=== PATIENT | female | born 1995 | race Caucasian/White ===

== ENCOUNTER → 2017-08-05 15:29 | Outpatient (CLI) | payer BC, SELFPAY ==
[2017-08-05 18:06] LABS: ALB/GLOB Ratio 1.1 RATIO (0.9-2.4); AST(SGOT) 16 U/L (15-37); Alanine Aminotransfer ALT/SGPT 47 U/L (13-56); Alkaline Phosphatase 119 U/L (45-117); Anion Gap 6 (5-15); BUN 8 mg/dL (7-18); BUN/Creat Ratio 11.5 RATIO (10-20); Chloride 108 mmol/L (98-107); Cholesterol 159 mg/dL (200); Creatinine, Serum 0.69 mg/dL (0.55-1.02); EST Glomerular Filtration Rate 114 mL/min (>60); Est Glom Filt Rate - Afr Amer 138 mL/min (>60); Globulin 3.5 g/dL (2.2-4.2); Glucose 169 mg/dL (74-106); High Density Lipoprotein 28 mg/dL; Potassium 4.1 mmol/L (3.5-5.1); Protein, Total 7.5 g/dL (6.4-8.2); Sodium Level 139 mmol/L (136-145); T4 Free Direct 0.93 ng/dL (0.76-1.46); Thyroid Stim Hormone (TSH) 0.89 uIU/mL (0.358-3.74); Triglycerides 338 mg/dL; Very Low Density Lipoprotein 68 mg/dL (5-40)
[2017-08-05 18:08] LABS: Hemoglobin A1c 6.1 % (4.2-6.3)
== END ==
PROVIDERS: Family Provider Family Medicine; PCP Family Medicine; Visit Provider Family Medicine
DX: K75.81 Nonalcoholic steatohepatitis (NASH) (principal); L83 Acanthosis nigricans; E66.9 Obesity, unspecified
CPT/HCPCS: 36415; 80053; 80061; 83036; 84439; 84443

== ENCOUNTER → 2019-06-03 14:22 | Outpatient (CLI) | payer BC, SELFPAY ==
[2019-06-03 14:04] VITALS: BMI 40.2
[2019-06-03 15:17] LABS: Estradiol 61.1 pg/mL; Prolactin 13.2 ng/mL; Thyroid Stim Hormone (TSH) 1.32 uIU/mL (0.358-3.74)
== END ==
PROVIDERS: PCP Family Medicine; Referring Provider Nurse Practitioner Women's Health; Visit Provider Nurse Practitioner Women's Health
DX: N97.0 Female infertility associated with anovulation (principal)
CPT/HCPCS: 36415; 82670; 84146; 84443

== ENCOUNTER → 2019-06-18 10:56 | Outpatient (CLI) | payer BC, SELFPAY ==
[2019-06-03 14:04] VITALS: BMI 40.2
[2019-06-18 12:08] LABS: Progesterone Level 0.27 ng/mL (See Comment)
== END ==
PROVIDERS: Nurse Practitioner Women's Health; PCP Family Medicine; Referring Provider Obstetrics & Gynecology; Visit Provider Obstetrics & Gynecology
DX: E28.2 Polycystic ovarian syndrome (principal)
CPT/HCPCS: 36415; 84144

== ENCOUNTER → 2019-07-29 09:40 | Outpatient (CLI) | payer BC, SELFPAY ==
[2019-06-03 14:04] VITALS: BMI 40.2
[2019-07-29 10:33] LABS: hCG Titer Quant., Serum < 1 mIU/mL (1-3)
== END ==
PROVIDERS: PCP Family Medicine; Referring Provider Nurse Practitioner Women's Health; Visit Provider Nurse Practitioner Women's Health
DX: N91.2 Amenorrhea, unspecified (principal)
CPT/HCPCS: 36415; 84702

== ENCOUNTER 2021-06-30 11:08 | Outpatient (CLI) | payer BC, SELFPAY ==
[2021-06-30 12:24] LABS: hCG Titer Quant., Serum 48 mIU/mL (1-3)
== END 2021-06-30 23:59 | disposition home or self-care (01) ==
LOC: PAVLAB 11:10
PROVIDERS: PCP Family Medicine; Referring Provider Obstetrics & Gynecology; Visit Provider Obstetrics & Gynecology
DX: N91.2 Amenorrhea, unspecified (principal)
CPT/HCPCS: 36415; 84702

== ENCOUNTER 2021-07-03 10:11 | Outpatient (CLI) | payer BC, SELFPAY ==
[2021-07-03 10:57] LABS: hCG Titer Quant., Serum 125 mIU/mL (1-3)
== END 2021-07-03 23:59 | disposition home or self-care (01) ==
LOC: PAVLAB 10:12
PROVIDERS: PCP Family Medicine; Referring Provider Obstetrics & Gynecology; Visit Provider Obstetrics & Gynecology
DX: O20.0 Threatened abortion (principal); Z3A.00 Weeks of gestation of pregnancy not specified
CPT/HCPCS: 36415; 84702

== ENCOUNTER 2021-07-19 13:57 | Outpatient (CLI) | payer BC, SELFPAY ==
[2021-07-19 14:45] LABS: Absolute Lymphocyte Count 3.51 X10^3/uL (0.83-4.51); Absolute Neutrophil Count 9.5 X10^3/uL (2.0-7.7); Basophil# 0.11 X10^3/uL; Basophil% 0.8 % (0-1); Eosinophil# 0.22 X10^3/uL; Eosinophils% 1.6 % (0-5); Hematocrit 43.4 % (37-47); Hemoglobin 15.4 g/dL (12.0-15.0); Lymphocyte # 3.51 X10^3/ul (0.83-4.51); Lymphocyte % 25.1 % (19-41); Mean Corp Hgb Conc 35.5 g/dL (32-36); Mean Corpuscular Volume 87.3 fL (81-99); Mean Platelet Vol. 9.8 fl (6.2-12.0); Monocyte# 0.59 X10^3/uL; Monocyte% 4.2 % (0-10); NRBC Flagged by Analyzer 0 % (0-5); Neutrophil # 9.48 X10^3/uL (2.7-7.7); Neutrophil % 67.7 % (47-70); Platelet Count 399 K/mm3 (150-450); RBC Distribution Width CV 12.5 % (11.6-14.6); RBC Distribution Width SD 39.6 fl (35.1-43.9); Red Blood Count 4.97 M/mm3 (4.2-5.4)
[2021-07-19 14:46] LABS: Color, Urine Yellow (Yellow); Glucose, Dipstick Normal (Normal); Ketone-Dipstick Negative (Negative); Leukocyte Esterase-Dipstick Negative /ul (Negative); Nitrite-Dipstick Negative (Negative); Occult Blood-Urine Negative /ul (Negative); Protein-Dipstick Negative (Negative); Urine Bilirubin Dipstick Negative (Negative); Urine Clarity Clear (Clear); Urine Urobilinogen Normal (Normal)
[2021-07-19 14:50] LABS: Vista UDS pH Range 6
[2021-07-19 14:58] LABS: Amphetamine Urine VISTA NEGATIVE (<1000 ng/mL); Barbiturate Urine VISTA NEGATIVE (< 200 ng/mL); Benzodiazepine Urine VISTA NEGATIVE (< 200 ng/mL); Cocaine Urine VISTA NEGATIVE (< 300 ng/mL); Ecstacy Urine VISTA NEGATIVE (< 500 ng/mL); Methadone Urine VISTA NEGATIVE (< 300 ng/mL); PCP Urine VISTA NEGATIVE (< 25 ng/mL); THC Urine VISTA NEGATIVE (< 50 ng/mL)
[2021-07-19 15:07] LABS: Thyroid Stim Hormone (TSH) 2.47 uIU/mL (0.358-3.74)
[2021-07-19 16:30] LABS: HIV - WCH Non-Reactive (Nonreactive); Hepatitis B Surface Antigen Non-Reactive (Nonreactive); Hepatitis C Antibody Non-Reactive (Nonreactive); Rubella IgG Reactive (Nonreactive); Syphilis Antibodies Non-reactive
[2021-07-25 12:00] LABS: Chlamydia By Nucleic Acid AMP Negative (Negative)
[2021-07-25 16:35] LABS: Gonococcus By Nucleic Acid AMP Negative (Negative)
== END 2021-07-19 23:59 | disposition home or self-care (01) ==
LOC: WOBLAB 13:58
PROVIDERS: PCP Family Medicine; Visit Provider Obstetrics & Gynecology
DX: Z34.81 Encounter for supervision of other normal pregnancy, first trimester (principal); Z12.4 Encounter for screening for malignant neoplasm of cervix; Z11.3 Encounter for screening for infections with a predominantly sexual mode of transmission
CPT/HCPCS: 36415; 80307; 81002; 84443; 85025; 86703; 86762; 86780; 86803; 87086; 87088; 87340; 87491; 87591; 88175; G0145

== ENCOUNTER 2021-08-03 21:34 | Emergency (ER) | payer BC, SELFPAY ==
[2021-08-03 21:34] VITALS: BP 168/108; PULSE 110; RESP 18; TEMP 36.4; O2SAT 97; BMI 40.6
--- NOTE | 2021-08-03 22:05 | US_ITS ---
EXAM: US FIRST TRIMESTER , TRANSABDOMINAL AND TRANSVAGINAL CLINICAL INDICATION: bleeding TECHNIQUE: Real-time transabdominal and transvaginal obstetrical ultrasound of the maternal pelvis and a first trimester with image documentation. Transvaginal imaging was used for better evaluation of the fetus and adnexa. This report was created using [employer] report generation technology. COMPARISON: None. FINDINGS: GESTATION: Single intrauterine gestational sac very low in the uterus extending into the cervix. Yolk sac identified. [place]-rump length is 1.5 cm corresponding to 7 weeks 6 days. No cardiac activity identified. UTERUS/CERVIX: Unremarkable. No myometrial mass. The uterus measures 8.2 x 4.6 x 4.2 cm. OVARIES: Simple appearing cyst measuring 5.4 x 5.7 x 5.1 cm left adnexa. The right ovary measures 4.8 x 4.3 x 3.1 cm. The left ovary measures 3.1 x 3 x 3.4 cm. FREE FLUID: No free fluid. US/Transvaginal w/Preg US IMPRESSION: 1. demise with in progress. 2. Paraovarian cyst measuring 5.4 x 5.7 x 5.1 cm left adnexa. Electronically Signed: Jurgen Valentine MD at 23:21 EDT ,
--- NOTE | 2021-08-03 22:07 | EDS_ITS ---
HPI HPI - Female History of Present Illness Chief Complaint: Vag Bld, Preg Informant: patient Pain Pain: Positive for Pelvic Pain Onset: Today Context: Gradual Onset Timing: Waxes and wanes Quality: Positive for Cramping Location: Suprapubic Current Severity: Mild Maximum Severity: Mild Bleeding Issue: Positive for Vaginal bleeding Onset: Weeks (2 weeks, worse over the past 24 hours) Timing: Waxes and wanes Associated Symptoms Test: Positive P: 0 Ab: 0 Narrative Narrative: Patient presents secondary to pelvic cramping and vaginal bleeding. She is approximately 8 weeks . She is been having vaginal bleeding for the past 2 weeks that she describes more of spotting. Last evening the bleeding became heavier. She passed 2 blood clots last night and 1 this morning. Today she is been having increasing pelvic cramping. She reports having been seen by INSURANCE POLICY ISSUE CLERK. Ultrasound to confirm intrauterine . Blood type is reviewed in the computer and is O+. PFSH PFSH Medical History Anxiety Collar bone fracture Esophageal reflux Left Lateral Epicordylae Fracture Paratubal cyst PCOS (polycystic ovarian syndrome) Home Medications multivitamin with iron 1 tab PO DAILY 06/03/19 [History Last Taken Unknown] sertraline 100 mg tablet 100 mg PO QDAY #30 tab 07/15/21 [Rx Last Taken Unknown] hydrocodone-acetaminophen 1 tab PO Q6H PRN 3 Days #10 tab 08/03/21 [Rx Last Taken Unknown] metformin mg PO 08/03/21 [History Last Taken Unknown] progesterone micronized mg 08/03/21 [History Last Taken Unknown] Allergy/AdvReac Type Severity Reaction Status Date / Time No Known Allergies Allergy Verified 08/03/21 21:37 Family History Father Myocardial infarction Grandmother Breast cancer Surgical History History of tonsillectomy and adenoidectomy Hx of tympanostomy Social History Smoking Status: Never smoker substance use type: does not use caffeine: Yes what type of physical activity do you participate in: none seatbelt use: always do you feel safe at home: Yes additional social history: Recently - [place] ROS ROS ED Constitutional Constitutional ED: Denies chills or fever(s) Eyes Eyes: Denies change in vision ENT ENT ED: Denies sore throat Cardiovascular Cardiovascular: Denies chest pain Respiratory/Chest Respiratory/Chest: Denies cough or dyspnea Gastrointestinal Gastrointestinal: Reports abdominal pain; Denies diarrhea, nausea or vomiting Genitourinary Genitourinary ED: Denies dysuria or hematuria Musculoskeletal Musculoskeletal: Denies back pain Integumentary Denies rash Neurologic Neurologic: Denies headache(s) or weakness Allergic/Immunologic Allergic/Immunologic ED: Denies urticaria EXAM Physical Exam Const Vital Signs: 08/03/21 21:34 Temperature 97.6 F L Temperature Source Temporal Pulse Rate 110 H Respiratory Rate 18 Blood Pressure 168/108 H Blood Pressure Mean 128 Pulse Ox 97 Oxygen Delivery Method Room Air Positive well nourished and well developed General Appearance ED: well developed HEENT Reports moist mucous membranes Eyes PERRL and EOMs intact bilaterally Chest Wall inspection of chest normal and palpation of chest normal Resp normal respiratory effort and clear to auscultation bilaterally Cardio regular rate and regular rhythm GI soft to palpation and non-tender Extremity normal to inspection Neuro oriented x3 Sensorium / Orientation: alert Psych mental status grossly normal Skin no rashes or lesions noted MDM MDM MDM Narrative Medical decision making narrative: Blood type was reviewed in the computer and is all positive. Quant obtained at this time. Patient given Tylenol and a 500 cc IV fluid bolus. Pelvic ultrasound obtained. Lab Data Attestation: I reviewed the patient's lab results. Labs: Laboratory Results - last 24 hr 08/03/21 22:15 HCG, Quant [id number] H Radiography Diagnostic Testing: Clinical Impression(s) from Imaging Studies Obstetrics Ultrasound 08/03/21 22:05 IMPRESSION: 1. demise with in progress. 2. Paraovarian cyst measuring 5.4 x 5.7 x 5.1 cm left adnexa. Electronically Signed: Jurgen Valentine MD at 23:21 EDT , Treatment and Re-Evaluation Narrative: Quant is [id number], lower than the expected value for her expected 8-week . Ultrasound shows demise with no evidence of a heartbeat at this time. I did discuss findings with patient's INSURANCE POLICY ISSUE CLERK, Dr. Elder. She is to follow-up in the office. I will write her for Felicita to help with cramping. I did explain to her that she will likely start having bleeding consistent with a heavy period. Return instructions are provided. Repeat blood pressure prior to discharge is 142/97. Discharge Plan Triage Chief Complaint: Vag Bld, Preg ED Provider: Malinda Wong Dx/Rx/DC Orders Clinical Impression: demise Instructions: ED MISCARRIAGE Incomplete Prescriptions: New hydrocodone-acetaminophen 5-325 mg tablet 1 tab PO Q6H PRN (Reason: pain) 3 Days Qty: 10 RF: 0 No Action multivitamin with iron [Daily Multiple Vitamins/Iron] Tablet 1 tab PO DAILY RF: 0 progesterone micronized 200 mg capsule RF: 0 metformin 500 mg tablet extended release 24 hr PO RF: 0 sertraline [Zoloft] 100 mg tablet 100 mg PO QDAY Qty: 30 RF: 12 Primary Care Provider: Kevin Novoa Referrals: Sj Elder MD [STAFF PHYSICIAN] - 1 Week Kevin Novoa DO [Primary Care Provider] - Disposition Disposition: Home, Self Care
[2021-08-03] MEDS: Acetaminophen 500 MG Tablet 1000 MG PO (22:24)
[2021-08-03 23:26] LABS: hCG Titer Quant., Serum 4439 mIU/mL (1-3)
[2021-08-03 23:51] VITALS: BP 154/88; PULSE 84; RESP 16; O2SAT 98
== END 2021-08-03 23:52 | disposition home or self-care (01) ==
PROVIDERS: Emergency Provider Emergency Medicine; PCP Family Medicine; Visit Provider Emergency Medicine
DX: O03.4 Incomplete spontaneous abortion without complication (principal); Z79.899 Other long term (current) drug therapy; O99.281 Endocrine, nutritional and metabolic diseases complicating pregnancy, first trimester; E28.2 Polycystic ovarian syndrome; O99.611 Diseases of the digestive system complicating pregnancy, first trimester; K21.9 Gastro-esophageal reflux disease without esophagitis; O99.341 Other mental disorders complicating pregnancy, first trimester; F41.9 Anxiety disorder, unspecified; Z79.84 Long term (current) use of oral hypoglycemic drugs
CPT/HCPCS: 76817; 84702; 96360; 99283; J7040; A4216

== ENCOUNTER → 2021-08-15 | Outpatient (CLI) | payer BC, SELFPAY ==
[2021-08-18 03:07] LABS: Dilute Prothrombin Time (dPT) 27.2 sec (0.0-47.6); Dilute Russell Viper Venom 41.5 sec (0.0-47.0); PTT-LA 36.2 sec (0.0-51.9); Thrombin Time 17.5 sec (0.0-23.0); dPT Confirm Ratio 1.27 Ratio (0.00-1.34)
[2021-08-18 08:42] LABS: Anti-Cardiolipin Ab, IgA, Qn < 9 APL U/mL (0-11); Anti-Cardiolipin Ab, IgG, Qn < 9 GPL U/mL (0-14); Anti-Cardiolipin Ab, IgM, Qn < 9 MPL U/mL (0-12); Beta-2-Glycoprotein I IgA <9 (0-25); Beta-2-Glycoprotein I IgG <9 (0-20); Beta-2-Glycoprotein I IgM <9 (0-32); Interpretation Comment: (.)
== END | disposition home or self-care (01) ==
LOC: WOBLAB 16:54
PROVIDERS: PCP Family Medicine; Visit Provider Student in an Organized Health Care Education/Training Program
DX: N96 Recurrent pregnancy loss (principal)
CPT/HCPCS: 36415; 86146; 86147

== ENCOUNTER → 2021-12-12 | Outpatient (CLI) | payer BC, SELFPAY | END | disposition home or self-care (01) | LOC: SL 12:09 | PROVIDERS: PCP Family Medicine; Referring Provider Family Medicine; Visit Provider Family Medicine | DX: G47.10 Hypersomnia, unspecified (principal) | CPT/HCPCS: 95806 ==

== ENCOUNTER → 2022-01-23 | Outpatient (CLI) | payer BC, SELFPAY ==
[2022-01-23 12:20] LABS: Progesterone Level 11.29 ng/mL (See Comment)
== END | disposition home or self-care (01) ==
LOC: WOBLAB 11:03
PROVIDERS: PCP Family Medicine; Visit Provider Student in an Organized Health Care Education/Training Program
DX: N97.9 Female infertility, unspecified (principal)
CPT/HCPCS: 36415; 84144

== ENCOUNTER → 2022-02-05 | Outpatient (CLI) | payer BC, SELFPAY ==
[2022-02-05 13:07] LABS: hCG Titer Quant., Serum 2 mIU/mL (1-3)
== END | disposition home or self-care (01) ==
LOC: WOBLAB 10:47
PROVIDERS: PCP Family Medicine; Visit Provider Obstetrics & Gynecology
DX: O20.0 Threatened abortion (principal); Z3A.00 Weeks of gestation of pregnancy not specified
CPT/HCPCS: 36415; 84702

== ENCOUNTER → 2022-04-04 | Outpatient (CLI) | payer BC, SELFPAY ==
[2022-04-04 11:07] LABS: Absolute Lymphocyte Count 2.79 X10^3/uL (0.83-4.51); Absolute Neutrophil Count 7.4 X10^3/uL (2.0-7.7); Basophil# 0.09 X10^3/uL; Basophil% 0.8 % (0-1); Eosinophil# 0.18 X10^3/uL; Eosinophils% 1.7 % (0-5); Hematocrit 42.3 % (37-47); Hemoglobin 14.7 g/dL (12.0-15.0); Lymphocyte # 2.79 X10^3/ul (0.83-4.51); Lymphocyte % 25.7 % (19-41); Mean Corp Hgb Conc 34.8 g/dL (32-36); Mean Corpuscular Hgb 30.3 pg (27.0-32.0); Mean Corpuscular Volume 87.2 fL (81-99); Mean Platelet Vol. 9.7 fl (6.2-12.0); Monocyte# 0.37 X10^3/uL; Monocyte% 3.4 % (0-10); NRBC Flagged by Analyzer 0 % (0-5); Neutrophil # 7.37 X10^3/uL (2.7-7.7); Neutrophil % 67.9 % (47-70); Platelet Count 378 K/mm3 (150-450); RBC Distribution Width CV 12.9 % (11.6-14.6); Red Blood Count 4.85 M/mm3 (4.2-5.4); White Blood Count 10.9 K/mm3 (4.4-11.0)
[2022-04-04 11:44] LABS: T4 Free Direct 1.12 ng/dL (0.76-1.46)
[2022-04-04 12:12] LABS: HIV - WCH Non-Reactive (Nonreactive); Hepatitis B Surface Antigen Non-Reactive (Nonreactive); Hepatitis C Antibody Non-Reactive (Nonreactive); Rubella IgG Reactive (Nonreactive); Syphilis Antibodies Non-reactive
[2022-04-04 14:54] LABS: Hemoglobin A1c 6.2 % (3.8-5.6)
[2022-04-05 16:27] LABS: V-Zoster IgG (Immunity) 899 index (Immune >165)
[2022-04-06 06:08] LABS: Chlamydia By Nucleic Acid AMP Negative (Negative)
[2022-04-06 10:44] LABS: Gonococcus By Nucleic Acid AMP Negative (Negative)
== END | disposition home or self-care (01) ==
LOC: WOBLAB 09:35
PROVIDERS: PCP Family Medicine; Visit Provider Obstetrics & Gynecology
DX: Z34.81 Encounter for supervision of other normal pregnancy, first trimester (principal)
CPT/HCPCS: 36415; 83036; 84439; 84443; 85025; 86703; 86762; 86780; 86787; 86803; 87086; 87088; 87340; 87491; 87591

== ENCOUNTER → 2022-04-17 | Outpatient (CLI) | payer BC, SELFPAY ==
--- NOTE | 2022-04-17 10:11 | EKG12_ITS ---
Test Reason : PREG,DM2 Blood Pressure : / mmHG Vent. Rate : 103 BPM Atrial Rate : 103 BPM P-R Int : 132 ms QRS Dur : 084 ms QT Int : 344 ms P-R-T Axes : 012 002 024 degrees QTc Int : 450 ms Sinus tachycardia Otherwise normal ECG Confirmed by VAISHNAVI CARBONE, BUCK ([id number]), material expeditor ANGIE SMITH ([id number]) on 04/18/2022 9:57:06 AM Referred By: Abdi Vee Confirmed By:BUCK RIGGINS MD
== END | disposition home or self-care (01) ==
LOC: PSN 10:10
PROVIDERS: PCP Family Medicine; Referring Provider Obstetrics & Gynecology; Visit Provider Obstetrics & Gynecology
DX: O24.111 Pre-existing type 2 diabetes mellitus, in pregnancy, first trimester (principal); Z3A.00 Weeks of gestation of pregnancy not specified
CPT/HCPCS: 93005

== ENCOUNTER 2022-06-29 12:25 | Emergency (ER) | payer BC, SELFPAY ==
[2022-06-29 12:25] VITALS: BP 146/95; PULSE 144; RESP 16; TEMP 36.3; O2SAT 98; BMI 39.2
[2022-06-29] MEDS: 0.9% Normal Saline 1,000 ML 1000 ML IV (13:54)
[2022-06-29] MEDS: Morphine 4 MG/ML Syringe IV (13:54)
[2022-06-29] MEDS: Ondansetron 4 MG/2 ML Vial IV (13:54)
[2022-06-29 14:15] LABS: Mucous, Urine 0 SEEN /hpf (<or=2+); Red Blood Cells-Urine 0 SEEN /hpf (0-5); White Blood Cells 0 SEEN /hpf (0-5)
[2022-06-29 14:25] LABS: Color, Urine Yellow (Yellow); Glucose, Dipstick Normal (Normal); Ketone-Dipstick Negative (Negative); Leukocyte Esterase-Dipstick Negative /ul (Negative); Nitrite-Dipstick Negative (Negative); Occult Blood-Urine Negative /ul (Negative); Protein-Dipstick Negative (Negative); Specific Gravity, Urine 1.005 (1.002-1.030); Urine Bilirubin Dipstick Negative (Negative); Urine Clarity Sl. Cloudy (Clear); Urine Urobilinogen Normal (Normal)
[2022-06-29 14:28] LABS: Absolute Lymphocyte Count 2.32 X10^3/uL (0.83-4.51); Absolute Neutrophil Count 6.9 X10^3/uL (2.0-7.7); Basophil# 0.05 X10^3/uL; Basophil% 0.5 % (0-1); Eosinophil# 0.11 X10^3/uL; Eosinophils% 1.1 % (0-5); Lymphocyte # 2.32 X10^3/ul (0.83-4.51); Lymphocyte % 23.6 % (19-41); Mean Corp Hgb Conc 34.2 g/dL (32-36); Mean Corpuscular Hgb 29.4 pg (27.0-32.0); Mean Platelet Vol. 9.6 fl (6.2-12.0); Monocyte# 0.41 X10^3/uL; Monocyte% 4.2 % (0-10); NRBC Flagged by Analyzer 0 % (0-5); Neutrophil # 6.88 X10^3/uL (2.7-7.7); Neutrophil % 70.2 % (47-70); Platelet Count 347 K/mm3 (150-450); RBC Distribution Width CV 13.3 % (11.6-14.6); RBC Distribution Width SD 40.6 fl (35.1-43.9); Red Blood Count 4.42 M/mm3 (4.2-5.4); White Blood Count 9.8 K/mm3 (4.4-11.0)
[2022-06-29 14:37] LABS: Anion Gap 10 (5-15); BUN 5 mg/dL (7-18); BUN/Creat Ratio 10.1 RATIO (10-20); Chloride 103 mmol/L (98-107); EST Glomerular Filtration Rate 161 mL/min (>60); Est Glom Filt Rate - Afr Amer 195 mL/min (>60); Estimated Creatinine Clearance 148.53 ml/min; Glucose 82 mg/dL (74-106); Potassium 3.8 mmol/L (3.5-5.1); Sodium Level 137 mmol/L (136-145)
[2022-06-29 14:40] LABS: Bacteria 1+ /hpf (None Seen); Squamous Epithelial Cells - UA 0-5 SEEN /hpf (5-10)
--- NOTE | 2022-06-29 15:30 | EDS_ITS ---
HPI History of Present Illness Chief Complaint: Nausea/Vomiting Informant: patient Onset/Context/Timing Onset: Days (3) Context: Gradual Onset Timing: Continuous Worsened by: Nothing Relieved by: Nothing Narrative Narrative: Patient presents with nausea and vomiting for the past 3 days. Patient states she has been unable to keep anything down. Patient states her emesis is mainly stomach contents. Patient denies any hematemesis or coffee-ground emesis. Patient is approximately 19 weeks and 3 days . Patient denies any diarrhea, melena, or hematochezia. Patient denies any abdominal pain. Patient denies any abnormal vaginal bleeding or discharge. Patient denies any dysuria, frequency, or hematuria. Patient states nothing has been helping with her vomiting. [facility] Medical History Anxiety Collar bone fracture Diabetes Esophageal reflux Left Lateral Epicordylae Fracture Paratubal cyst PCOS (polycystic ovarian syndrome) Home Medications metformin 500 mg tablet,extended release 24 hr 500 mg PO BID 08/03/21 [History Last Taken Unknown] aspirin 81 mg capsule 81 mg PO DAILY 06/29/22 [History Last Taken Unknown] folic acid 800 mcg tablet 0.8 mg PO DAILY 06/29/22 [History Last Taken Unknown] insulin detemir U-100 100 unit/mL subcutaneous solution (Levemir U-100 Insulin) 8 unit subcut QHS 06/29/22 [History Last Taken Unknown] ondansetron HCl 4 mg tablet 4 mg PO DAILY 06/29/22 [History Last Taken Unknown] sertraline 100 mg tablet (Zoloft) 50 mg PO DAILY anxiety 06/29/22 [History Last Taken Unknown] Allergy/AdvReac Type Severity Reaction Status Date / Time No Known Allergies Allergy Verified 06/29/22 12:29 Family History Father Myocardial infarction Grandmother Breast cancer Surgical History History of hysteroscopy History of tonsillectomy and adenoidectomy Hx of tympanostomy Social History Smoking Status: Never smoker substance use type: does not use caffeine: Yes what type of physical activity do you participate in: none seatbelt use: always do you feel safe at home: Yes additional social history: Recently - [place] ROS ROS ED Constitutional Constitutional ED: Denies chills or fever(s) Eyes Eyes: Denies blurry vision or change in vision ENT ENT ED: Denies rhinorrhea or sore throat Cardiovascular Cardiovascular: Denies chest pain or palpitations Respiratory/Chest Respiratory/Chest: Denies cough or dyspnea Gastrointestinal Gastrointestinal: Reports nausea and vomiting Genitourinary Genitourinary ED: Denies dysuria or hematuria Musculoskeletal Musculoskeletal: Reports back pain; Denies neck pain Integumentary Denies abscess or rash Neurologic Neurologic: Reports headache(s); Denies weakness Allergic/Immunologic Allergic/Immunologic ED: Denies mouth swelling or urticaria EXAM Physical Exam Const Vital Signs: 06/29/22 12:25 Temperature 97.4 F L Temperature Source Temporal Pulse Rate 144 H Respiratory Rate 16 Blood Pressure 146/95 H Blood Pressure Mean 112 Pulse Ox 98 Oxygen Delivery Method Room Air Positive well nourished, well developed and obese General Appearance ED: well developed Nutritional Appearance: obese HEENT Reports moist mucous membranes Neck supple and no JVD Resp normal respiratory effort and clear to auscultation bilaterally Cardio regular rate, regular rhythm and no murmurs GI normal to inspection, nondistended, normoactive bowel sounds and non-tender Palpation: soft Extremity normal to inspection General Extremety ED: Negative for edema or tenderness General Extremity: Negative for edema Neuro oriented x3, CN's II-XII intact bilaterally and no sensory deficits noted Sensorium / Orientation: alert Motor Exam: strength 5/5 throughout Psych mental status grossly normal Skin no rashes or lesions noted MDM MDM MDM Narrative Medical decision making narrative: Differential diagnosis includes dehydration, hyperemesis gravidarum, urinary tract infection, electrolyte abnormality, and gastroenteritis. CBC will be obtained to assess for leukocytosis and anemia. Basic metabolic profile will be obtained to assess for electrolyte abnormality and renal function. Urinalysis will be obtained to assess for urinary tract infection and hematuria. Lab Data Lab results narrative: CBC was reviewed and was within normal limits. Basic metabolic profile was reviewed and was within normal limits. Urinalysis was reviewed. There is no evidence of urinary tract infection or hematuria. Labs: Laboratory Results - last 24 hr 06/29/22 06/29/22 06/29/22 14:05 14:05 14:05 WBC 9.8 RBC 4.42 Hgb 13.0 Hct 38.0 MCV 86.0 MCH 29.4 MCHC 34.2 RDW Std Deviation 40.6 RDW Coeff of Kayleigh 13.3 Plt Count 347 MPV 9.6 Immature Gran % (Auto) 0.400 Neut % (Auto) 70.2 H Lymph % (Auto) 23.6 [place] % (Auto) 4.2 Eos % (Auto) 1.1 Baso % (Auto) 0.5 Absolute Neuts (auto) 6.9 Absolute Lymphs (auto) 2.32 Nucleated RBC % 0 Sodium 137 Potassium 3.8 Chloride 103 Carbon Dioxide 24.0 Anion Gap 10 BUN 5 L Creatinine 0.50 L Estim Creat Clear Calc 148.53 Est GFR (MDRD) Af Amer 195 Est GFR (MDRD) Non-Af 161 BUN/Creatinine Ratio 10.1 Glucose 82 Calcium 10.0 Urine Color Yellow Urine Clarity Sl. Cloudy Urine pH 7.0 Ur Specific [place] 1.005 Urine Protein Negative Urine Glucose (UA) Normal Urine Ketones Negative Urine Occult Blood Negative Urine Nitrite Negative Urine Bilirubin Negative Urine Urobilinogen Normal Ur Leukocyte Esterase Negative Urine RBC 0 SEEN Urine WBC 0 SEEN Ur Squamous Epith Cells 0-5 SEEN Urine Bacteria 1+ Urine Mucus 0 SEEN Treatment and Re-Evaluation :: Patient was given IV fluids, morphine, and Zofran. Patient is feeling better on reevaluation. Patient was instructed to start with small amounts of liquids more frequently. Patient was instructed to advance as tolerated. Patient states she has Zofran at home. Because of this, I do not feel the patient needs a prescription for antiemetics. Patient was instructed to take this as needed. Patient was instructed to follow-up with her [facility] and primary care physician in 5 to 7 days. Patient understood and was agreeable with the plan. All questions were answered. Discharge Plan Triage Chief Complaint: Nausea/Vomiting ED Provider: Prakash Bland Dx/Rx/DC Orders Clinical Impression: Nausea and vomiting, Instructions: ED Vomiting (Adult), ED Established ... Prescriptions: No Action metformin 500 mg tablet extended release 24 hr 500 mg PO BID Label Comments: take 2 tablets by mouth twice a day ondansetron HCl 4 mg tablet 4 mg PO DAILY Label Comments: TAKE 1 TABLET BY MOUTH EVERY 4-6 HOURS NEEDED FOR NAUSEA folic acid 800 mcg Tablet 0.8 mg PO DAILY Levemir U-100 Insulin 100 unit/mL solution 8 unit SUBCUT QHS Label Comments: inject 15 units subcutaneously nightly aspirin 81 mg Capsule 81 mg PO DAILY sertraline [Zoloft] 100 mg tablet 50 mg PO DAILY Primary Care Provider: Kevin Novoa Referrals: Abdi Vee MD [Med Staff - Active Staff] - 3-5 Days Kevin Novoa DO [Primary Care Provider] - 1-2 Weeks Disposition Disposition: Home, Self Care
== END 2022-06-29 15:57 | disposition home or self-care (01) ==
PROVIDERS: Emergency Provider Emergency Medicine; PCP Family Medicine; Visit Provider Emergency Medicine
DX: O21.0 Mild hyperemesis gravidarum (principal); Z79.4 Long term (current) use of insulin; O99.212 Obesity complicating pregnancy, second trimester; O24.312 Unspecified pre-existing diabetes mellitus in pregnancy, second trimester; O99.342 Other mental disorders complicating pregnancy, second trimester; F41.9 Anxiety disorder, unspecified; Z79.84 Long term (current) use of oral hypoglycemic drugs; Z3A.19 19 weeks gestation of pregnancy
CPT/HCPCS: 80048; 81001; 85025; 96361; 96374; 96375; 99283; J7030; A4216; J2405

== ENCOUNTER 2022-07-01 21:20 | Emergency (ER) | payer BC, SELFPAY ==
[2022-07-01 21:21] VITALS: BP 133/90; PULSE 136; RESP 16; TEMP 36.6; O2SAT 99; BMI 39.4
[2022-07-01 21:56] LABS: Bacteria 0 SEEN /hpf (None Seen); Mucous, Urine 0 SEEN /hpf (<or=2+); Red Blood Cells-Urine 0 SEEN /hpf (0-5)
[2022-07-01 21:58] LABS: Color, Urine Yellow (Yellow); Glucose, Dipstick 250 mg/dl (Normal); Ketone-Dipstick 5 mg/dl (Negative); Leukocyte Esterase-Dipstick 25 /ul (Negative); Nitrite-Dipstick Negative (Negative); Occult Blood-Urine Negative /ul (Negative); Protein-Dipstick Negative (Negative); Urine Bilirubin Dipstick Negative (Negative); Urine Clarity Sl. Cloudy (Clear); Urine Urobilinogen Normal (Normal); Urine pH 6.5 (5.0 - 8.0)
[2022-07-01 21:59] LABS: Absolute Lymphocyte Count 2.87 X10^3/uL (0.83-4.51); Absolute Neutrophil Count 6.4 X10^3/uL (2.0-7.7); Basophil# 0.05 X10^3/uL; Basophil% 0.5 % (0-1); Eosinophil# 0.15 X10^3/uL; Eosinophils% 1.5 % (0-5); Hemoglobin 12.7 g/dL (12.0-15.0); Lymphocyte # 2.87 X10^3/ul (0.83-4.51); Lymphocyte % 29.2 % (19-41); Mean Corp Hgb Conc 33.4 g/dL (32-36); Mean Corpuscular Hgb 29.1 pg (27.0-32.0); Mean Corpuscular Volume 87.2 fL (81-99); Mean Platelet Vol. 9.4 fl (6.2-12.0); Monocyte# 0.31 X10^3/uL; Monocyte% 3.2 % (0-10); NRBC Flagged by Analyzer 0 % (0-5); Neutrophil % 65.1 % (47-70); Platelet Count 348 K/mm3 (150-450); RBC Distribution Width SD 40.4 fl (35.1-43.9); Red Blood Count 4.36 M/mm3 (4.2-5.4); White Blood Count 9.8 K/mm3 (4.4-11.0)
[2022-07-01 22:04] LABS: Amorphous Sediment 1+ URATE; Squamous Epithelial Cells - UA 0-5 SEEN /hpf (5-10); White Blood Cells 0-5 SEEN /hpf (0-5)
[2022-07-01] MEDS: 0.9% Normal Saline 1,000 ML 999 ML IV ×2 (22:11→23:33)
[2022-07-01 22:14] LABS: ALB/GLOB Ratio 0.8 RATIO (0.9-2.4); AST(SGOT) 15 U/L (15-37); Alanine Aminotransfer ALT/SGPT 19 U/L (13-56); Albumin, Serum 3.1 g/dL (3.2-5.0); Alkaline Phosphatase 75 U/L (45-117); Anion Gap 9 (5-15); BUN 6 mg/dL (7-18); BUN/Creat Ratio 10.5 RATIO (10-20); Calcium,Total 10.3 mg/dL (8.5-10.1); Chloride 105 mmol/L (98-107); Creatinine, Serum 0.57 mg/dL (0.55-1.02); EST Glomerular Filtration Rate 136 mL/min (>60); Est Glom Filt Rate - Afr Amer 164 mL/min (>60); Estimated Creatinine Clearance 130.29 ml/min; Globulin 3.8 g/dL (2.2-4.2); Glucose 168 mg/dL (74-106); Potassium 3.5 mmol/L (3.5-5.1); Protein, Total 6.9 g/dL (6.4-8.2); Sodium Level 138 mmol/L (136-145)
[2022-07-01] MEDS: proMETHazine 25 MG Tablet PO (23:16)
--- NOTE | 2022-07-02 00:23 | EDS_ITS ---
HPI HPI - GI History of Present Illness Chief Complaint: Nausea/Vomiting Narrative Narrative: 26-year-old female 19 weeks 5 days presenting with nausea and vomiting. She was seen 2 days ago for similar symptoms. He is not have any abdominal pain. She states she gets very nauseous. She is been nauseous throughout her whole . Has been on Zofran the whole time however this has not helped. She states when she was in the ER last we gave her IV fluids and Zofran through the IV and this did help her. She improved but went home and had continued symptoms of nausea and vomiting. She denies urinary complaints. She denies vaginal bleeding or discharge. No flank pain. No abdominal pain. No diarrhea or constipation. [facility] Medical History Anxiety Collar bone fracture Diabetes Esophageal reflux Left Lateral Epicordylae Fracture Paratubal cyst PCOS (polycystic ovarian syndrome) Home Medications metformin 500 mg tablet,extended release 24 hr 500 mg PO BID 08/03/21 [History Last Taken Unknown] aspirin 81 mg capsule 81 mg PO DAILY 06/29/22 [History Last Taken Unknown] folic acid 800 mcg tablet 0.8 mg PO DAILY 06/29/22 [History Last Taken Unknown] insulin detemir U-100 100 unit/mL subcutaneous solution (Levemir U-100 Insulin) 8 unit subcut QHS 06/29/22 [History Last Taken Unknown] ondansetron HCl 4 mg tablet 4 mg PO DAILY 06/29/22 [History Last Taken Unknown] sertraline 100 mg tablet (Zoloft) 50 mg PO DAILY anxiety 06/29/22 [History Last Taken Unknown] promethazine 25 mg tablet 25 mg PO TID PRN nausea and vomiting #20 tabs 07/02/22 [Rx Last Taken Unknown] Allergy/AdvReac Type Severity Reaction Status Date / Time No Known Allergies Allergy Verified 07/01/22 21:22 Family History Father Myocardial infarction Grandmother Breast cancer Surgical History History of hysteroscopy History of tonsillectomy and adenoidectomy Hx of tympanostomy Social History Smoking Status: Never smoker substance use type: does not use caffeine: Yes what type of physical activity do you participate in: none seatbelt use: always do you feel safe at home: Yes additional social history: Recently - [place] ROS ROS ED Constitutional Constitutional ED: Denies chills or fever(s) ENT ENT ED: Denies rhinorrhea or sore throat Cardiovascular Cardiovascular: Denies chest pain or palpitations Respiratory/Chest Respiratory/Chest: Denies cough or dyspnea Gastrointestinal Gastrointestinal: Reports nausea and vomiting; Denies abdominal pain Genitourinary Genitourinary ED: Denies dysuria or hematuria Musculoskeletal Musculoskeletal: Denies arthralgias Integumentary Denies abscess or Abrasions Neurologic Neurologic: Denies headache(s) or paresthesias Psychiatric Psychiatric: Denies anxiety or depression EXAM Physical Exam Const Vital Signs: 07/01/22 21:21 Temperature 98 F Temperature Source Temporal Pulse Rate 136 H Respiratory Rate 16 Blood Pressure 133/90 H Blood Pressure Mean 104 Pulse Ox 99 Oxygen Delivery Method Room Air Positive well nourished General Appearance ED: NAD HEENT Reports moist mucous membranes Eyes PERRL and EOMs intact bilaterally Resp normal respiratory effort Cardio regular rhythm Rate: tachycardic GI non-tender Back/Spine no CVA tenderness Neuro CN's II-XII intact bilaterally Sensorium / Orientation: alert Motor Exam: strength 5/5 throughout Psych mental status grossly normal Skin no wounds MDM MDM MDM Narrative Medical decision making narrative: Patient not have any abdominal pain she is nauseous. Zofran not helping. She is given Phenergan p.o. which she states her nausea has been significantly better. CBC was obtained and is normal. CMP shows normal renal function and electrolytes. Her glucose is elevated at 168 without anion gap. Calcium slightly elevated. Urinalysis negative for infection. Patient was given 2 L of IV fluids. She is feeling good enough to go home at this point. I will give her follow-up with her BUSINESS AFFAIRS MANAGER. Return precautions discussed. Phenergan given for home Impression: 1. Hyperemesis gravidarum Lab Data Labs: Laboratory Results - last 24 hr 07/01/22 07/01/22 07/01/22 21:50 21:50 21:50 WBC 9.8 RBC 4.36 Hgb 12.7 Hct 38.0 MCV 87.2 MCH 29.1 MCHC 33.4 RDW Std Deviation 40.4 RDW Coeff of [place]leigh 13.0 Plt Count 348 MPV 9.4 Immature Gran % (Auto) 0.500 Neut % (Auto) 65.1 Lymph % (Auto) 29.2 [place] % (Auto) 3.2 Eos % (Auto) 1.5 Baso % (Auto) 0.5 Absolute Neuts (auto) 6.4 Absolute Lymphs (auto) 2.87 Nucleated RBC % 0 Sodium 138 Potassium 3.5 Chloride 105 Carbon Dioxide 24.0 Anion Gap 9 BUN 6 L Creatinine 0.57 Estim Creat Clear Calc 130.29 Est GFR (MDRD) Af Amer 164 Est GFR (MDRD) Non-Af 136 BUN/Creatinine Ratio 10.5 Glucose 168 H Calcium 10.3 H Total Bilirubin 0.20 AST 15 ALT 19 Alkaline Phosphatase 75 Total Protein 6.9 Albumin 3.1 L Globulin 3.8 Albumin/Globulin Ratio 0.8 L Urine Color Yellow Urine Clarity Sl. Cloudy Urine pH 6.5 Ur Specific [place] 1.010 Urine Protein Negative Urine Glucose (UA) 250 H Urine Ketones 5 H Urine Occult Blood Negative Urine Nitrite Negative Urine Bilirubin Negative Urine Urobilinogen Normal Ur Leukocyte Esterase 25 H Urine RBC 0 SEEN Urine WBC 0-5 SEEN Ur Squamous Epith Cells 0-5 SEEN Amorphous Sediment 1+ URATE Urine Bacteria 0 SEEN Urine Mucus 0 SEEN Discharge Plan Triage Chief Complaint: Nausea/Vomiting ED Provider: Mark Ho Dx/Rx/DC Orders Instructions: ED Hyperemesis Gravidarum Prescriptions: New promethazine 25 mg tablet 25 mg PO TID PRN (Reason: nausea and vomiting) Qty: 20 0RF No Action metformin 500 mg tablet extended release 24 hr 500 mg PO BID Label Comments: take 2 tablets by mouth twice a day ondansetron HCl 4 mg tablet 4 mg PO DAILY Label Comments: TAKE 1 TABLET BY MOUTH EVERY 4-6 HOURS NEEDED FOR NAUSEA folic acid 800 mcg Tablet 0.8 mg PO DAILY Levemir U-100 Insulin 100 unit/mL solution 8 unit SUBCUT QHS Label Comments: inject 15 units subcutaneously nightly aspirin 81 mg Capsule 81 mg PO DAILY sertraline [Zoloft] 100 mg tablet 50 mg PO DAILY Primary Care Provider: Kevin Novoa Referrals: Kevin Novoa DO [Primary Care Provider] - Disposition Disposition: Home, Self Care
== END 2022-07-02 00:54 | disposition home or self-care (01) ==
PROVIDERS: Emergency Provider Student in an Organized Health Care Education/Training Program; PCP Family Medicine; Visit Provider Student in an Organized Health Care Education/Training Program
DX: O21.0 Mild hyperemesis gravidarum (principal); Z79.4 Long term (current) use of insulin; O24.912 Unspecified diabetes mellitus in pregnancy, second trimester; Z79.84 Long term (current) use of oral hypoglycemic drugs; Z3A.19 19 weeks gestation of pregnancy
CPT/HCPCS: 80053; 81001; 85025; 96360; 96361; 99284; J7030; A4216

== ENCOUNTER → 2022-08-21 | Outpatient (CLI) | payer BC, SELFPAY ==
[2022-08-21 11:22] LABS: ALB/GLOB Ratio 0.7 RATIO (0.9-2.4); AST(SGOT) 14 U/L (15-37); Alanine Aminotransfer ALT/SGPT 15 U/L (13-56); Albumin, Serum 2.9 g/dL (3.2-5.0); Alkaline Phosphatase 76 U/L (45-117); Anion Gap 10 (5-15); BUN 6 mg/dL (7-18); BUN/Creat Ratio 10.1 RATIO (10-20); Calcium,Total 9.5 mg/dL (8.5-10.1); Chloride 106 mmol/L (98-107); Creatinine, Serum 0.59 mg/dL (0.55-1.02); EST Glomerular Filtration Rate 130 mL/min (>60); Est Glom Filt Rate - Afr Amer 158 mL/min (>60); Globulin 4.4 g/dL (2.2-4.2); Glucose 103 mg/dL (74-106); Potassium 3.8 mmol/L (3.5-5.1); Protein, Total 7.3 g/dL (6.4-8.2); Sodium Level 138 mmol/L (136-145)
== END | disposition home or self-care (01) ==
PROVIDERS: PCP Family Medicine; Visit Provider Nurse Practitioner Women's Health
DX: L29.9 Pruritus, unspecified (principal)
CPT/HCPCS: 36415; 80053

== ENCOUNTER → 2022-10-15 | Outpatient (CLI) | payer BC, SELFPAY ==
[2022-10-15 12:25] LABS: Absolute Lymphocyte Count 1.58 X10^3/uL (0.83-4.51); Absolute Neutrophil Count 5.3 X10^3/uL (2.0-7.7); Basophil# 0.02 X10^3/uL; Basophil% 0.3 % (0-1); Eosinophil# 0.05 X10^3/uL; Eosinophils% 0.7 % (0-5); Hematocrit 38.6 % (37-47); Hemoglobin 12.8 g/dL (12.0-15.0); Lymphocyte # 1.58 X10^3/ul (0.83-4.51); Lymphocyte % 21.4 % (19-41); Mean Corp Hgb Conc 33.2 g/dL (32-36); Mean Corpuscular Hgb 28.2 pg (27.0-32.0); Mean Platelet Vol. 10.2 fl (6.2-12.0); Monocyte# 0.38 X10^3/uL; Monocyte% 5.2 % (0-10); NRBC Flagged by Analyzer 0 % (0-5); Neutrophil % 71.9 % (47-70); Platelet Count 352 K/mm3 (150-450); RBC Distribution Width SD 45.7 fl (35.1-43.9); Red Blood Count 4.54 M/mm3 (4.2-5.4); White Blood Count 7.4 K/mm3 (4.4-11.0)
[2022-10-15 12:44] LABS: ALB/GLOB Ratio 0.7 RATIO (0.9-2.4); AST(SGOT) 15 U/L (15-37); Alanine Aminotransfer ALT/SGPT 17 U/L (13-56); Albumin, Serum 2.7 g/dL (3.2-5.0); Alkaline Phosphatase 100 U/L (45-117); Anion Gap 8 (5-15); BUN 7 mg/dL (7-18); BUN/Creat Ratio 12.9 RATIO (10-20); Calcium,Total 9.5 mg/dL (8.5-10.1); Chloride 109 mmol/L (98-107); Creatinine, Serum 0.54 mg/dL (0.55-1.02); EST Glomerular Filtration Rate 145 mL/min (>60); Est Glom Filt Rate - Afr Amer 175 mL/min (>60); Globulin 4.1 g/dL (2.2-4.2); Glucose 103 mg/dL (74-106); LDH 83 U/L (84-246); Potassium 3.9 mmol/L (3.5-5.1); Protein, Total 6.8 g/dL (6.4-8.2); Sodium Level 137 mmol/L (136-145)
[2022-10-15 13:08] LABS: Protein, Urine (Random) 15.4 mg/dL (<11.9); Protein:Creat Ratio 445 mg/g CRE (0-200)
== END | disposition home or self-care (01) ==
LOC: WOBLAB 11:52
PROVIDERS: PCP Family Medicine; Visit Provider Student in an Organized Health Care Education/Training Program
DX: Z34.83 Encounter for supervision of other normal pregnancy, third trimester (principal)
CPT/HCPCS: 36415; 80053; 82570; 83615; 84156; 85025; 87086; 87088

== ENCOUNTER → 2022-10-19 | Outpatient (CLI) | payer BC, SELFPAY ==
[2022-10-19 11:03] LABS: Syphilis Antibodies Non-reactive
== END | disposition home or self-care (01) ==
LOC: WOBLAB 09:57
PROVIDERS: PCP Family Medicine; Visit Provider Obstetrics & Gynecology
DX: Z34.83 Encounter for supervision of other normal pregnancy, third trimester (principal); Z36.85 Encounter for antenatal screening for Streptococcus B
CPT/HCPCS: 36415; 86780; 87081

== ENCOUNTER 2022-10-23 15:30 | Outpatient (CLI) | payer BC, SELFPAY ==
[2022-10-23 15:45] VITALS: BMI 39.5
[2022-10-23 15:55] VITALS: PULSE 104; TEMP 36.6; O2SAT 98
[2022-10-23 15:58] VITALS: BP 152/102; PULSE 97
[2022-10-23 16:09] VITALS: BP 133/100; PULSE 101; O2SAT 98
[2022-10-23 16:49] VITALS: BP 103/58; PULSE 104
[2022-10-23 16:58] LABS: Absolute Lymphocyte Count 1.43 X10^3/uL (0.83-4.51); Absolute Neutrophil Count 6.4 X10^3/uL (2.0-7.7); Basophil# 0.03 X10^3/uL; Basophil% 0.4 % (0-1); Eosinophil# 0.04 X10^3/uL; Eosinophils% 0.5 % (0-5); Hematocrit 39.3 % (37-47); Lymphocyte # 1.43 X10^3/ul (0.83-4.51); Lymphocyte % 16.9 % (19-41); Mean Corp Hgb Conc 33.1 g/dL (32-36); Mean Corpuscular Hgb 28.4 pg (27.0-32.0); Mean Corpuscular Volume 85.8 fL (81-99); Mean Platelet Vol. 10.4 fl (6.2-12.0); Monocyte# 0.46 X10^3/uL; Monocyte% 5.5 % (0-10); NRBC Flagged by Analyzer 0 % (0-5); Neutrophil # 6.44 X10^3/uL (2.7-7.7); Neutrophil % 76.2 % (47-70); Platelet Count 341 K/mm3 (150-450); RBC Distribution Width CV 15.2 % (11.6-14.6); RBC Distribution Width SD 46.7 fl (35.1-43.9); Red Blood Count 4.58 M/mm3 (4.2-5.4); White Blood Count 8.4 K/mm3 (4.4-11.0)
[2022-10-23 17:43] LABS: ALB/GLOB Ratio 0.6 RATIO (0.9-2.4); AST(SGOT) 14 U/L (15-37); Alanine Aminotransfer ALT/SGPT 16 U/L (13-56); Albumin, Serum 2.6 g/dL (3.2-5.0); Alkaline Phosphatase 106 U/L (45-117); Anion Gap 10 (5-15); BUN 7 mg/dL (7-18); BUN/Creat Ratio 13.2 RATIO (10-20); Calcium,Total 9.2 mg/dL (8.5-10.1); Chloride 109 mmol/L (98-107); Creatinine, Serum 0.53 mg/dL (0.55-1.02); EST Glomerular Filtration Rate 148 mL/min (>60); Est Glom Filt Rate - Afr Amer 179 mL/min (>60); Estimated Creatinine Clearance 140.12 ml/min; Globulin 4.2 g/dL (2.2-4.2); Glucose 74 mg/dL (74-106); LDH 113 U/L (84-246); Potassium 4.1 mmol/L (3.5-5.1); Protein, Total 6.8 g/dL (6.4-8.2); Sodium Level 139 mmol/L (136-145)
[2022-10-23 17:59] VITALS: BP 110/66; PULSE 89
--- NOTE | 2022-10-24 08:50 | OB.TRI.NOTE ---
HPI - General HPI Narrative VISHAL VEE, is a 26 F who presents Maternal Data Information Final VALERIE: 11/20/22 PFSH PFS Medical History Anxiety Collar bone fracture Diabetes Esophageal reflux Left Lateral Epicordylae Fracture Paratubal cyst PCOS (polycystic ovarian syndrome) Home Medications metformin 500 mg tablet,extended release 24 hr 500 mg PO BID 08/03/21 [History Last Taken 10/23/22 09:00] aspirin 81 mg capsule 81 mg PO DAILY 06/29/22 [History Last Taken 10/22/22 21:30] folic acid 800 mcg tablet 0.8 mg PO DAILY 06/29/22 [History Last Taken 10/22/22 21:30] insulin detemir U-100 100 unit/mL subcutaneous solution (Levemir U-100 Insulin) 8 unit subcut QHS 06/29/22 [History Last Taken 10/22/22 21:30] ondansetron HCl 4 mg tablet 4 mg PO DAILY 06/29/22 [History Last Taken Unknown] sertraline 100 mg tablet (Zoloft) 50 mg PO DAILY anxiety 06/29/22 [History Last Taken 10/22/22 21:30] promethazine 25 mg tablet 25 mg PO TID PRN nausea and vomiting #20 tabs 07/02/22 [Rx Last Taken Unknown] vit no.95-ferrous fumarate 28 mg-folic acid 800 mcg tablet () 1 tab PO DAILY 10/23/22 [History Last Taken 10/23/22 09:00] Allergy/AdvReac Type Severity Reaction Status Date / Time No Known Allergies Allergy Verified 10/23/22 15:46 Family History Father Myocardial infarction Grandmother Breast cancer Surgical History History of hysteroscopy History of tonsillectomy and adenoidectomy Hx of tympanostomy Social History Smoking Status: Never smoker substance use type: does not use caffeine: Yes what type of physical activity do you participate in: none seatbelt use: always do you feel safe at home: Yes additional social history: Recently - Landa History 0 Elective abortions Hx Para Spontaneous abortions Hx # Term Pregnancies Ectopic pregnancies Hx # Pregnancies Multiple births # of living children Physical Exam Narrative Per Dr. Abdi Vee cervical exam unchanged 2 to 3 cm. Ferning negative. Patient comfortable in room. NST FHR Rate Baby A Baseline: 125 Variability:: Moderate Accelerations:: 15 x 15 Decelerations:: None NST Reactive:: Yes Uterine Activity:: rare Assessment Assessment Detail: 26-year-old G4, P0 at 36/0 weeks presenting with contractions. Cervix unchanged. Patient also reported some leaking that has been present for a long time. Patient had negative ferning on exam. She had a BPP earlier that day with a normal OLEKSANDR and BPP of 8 out of 8. Her initial blood pressure was elevated, with all repeats low normal. Preeclampsia labs were normal. Patient discharged home with labor precautions. She has an induction of labor scheduled for next week for preeclampsia without severe features.
== END 2022-10-23 18:10 | disposition home or self-care (01) ==
LOC: WPOUT 15:36 → WP 15:37
PROVIDERS: PCP Family Medicine; Referring Provider Student in an Organized Health Care Education/Training Program; Visit Provider Student in an Organized Health Care Education/Training Program
DX: O14.03 Mild to moderate pre-eclampsia, third trimester (principal); Z79.4 Long term (current) use of insulin; O24.313 Unspecified pre-existing diabetes mellitus in pregnancy, third trimester; O99.343 Other mental disorders complicating pregnancy, third trimester; F41.9 Anxiety disorder, unspecified; Z3A.36 36 weeks gestation of pregnancy; Z79.82 Long term (current) use of aspirin; Z79.84 Long term (current) use of oral hypoglycemic drugs; Z79.899 Other long term (current) drug therapy
CPT/HCPCS: 36415; 59025; 59050; 80053; 83615; 85025; 99221; G0378

== ENCOUNTER 2022-10-30 06:56 | Inpatient (IN) | payer BC, SELFPAY ==
[2022-10-30] VITALS (41 sets, daily range): BP systolic 118–184; BP diastolic 70–115; PULSE 90–150; TEMP 36.1–37.1; O2SAT 91–100; BMI 39.8
[2022-10-30] MEDS: Lactated Ringers 1,000 ML 50 ML IV (07:50)
[2022-10-30 08:05] LABS: Absolute Lymphocyte Count 2.11 X10^3/uL (0.83-4.51); Absolute Neutrophil Count 5.4 X10^3/uL (2.0-7.7); Basophil# 0.03 X10^3/uL; Basophil% 0.4 % (0-1); Eosinophil# 0.07 X10^3/uL; Eosinophils% 0.9 % (0-5); Hematocrit 38.6 % (37-47); Hemoglobin 12.9 g/dL (12.0-15.0); Lymphocyte # 2.11 X10^3/ul (0.83-4.51); Lymphocyte % 26.3 % (19-41); Mean Corp Hgb Conc 33.4 g/dL (32-36); Mean Corpuscular Hgb 28.5 pg (27.0-32.0); Mean Corpuscular Volume 85.4 fL (81-99); Mean Platelet Vol. 10.2 fl (6.2-12.0); Monocyte# 0.39 X10^3/uL; Monocyte% 4.9 % (0-10); NRBC Flagged by Analyzer 0 % (0-5); Neutrophil # 5.36 X10^3/uL (2.7-7.7); Neutrophil % 66.9 % (47-70); Platelet Count 338 K/mm3 (150-450); RBC Distribution Width CV 15.2 % (11.6-14.6); RBC Distribution Width SD 46.5 fl (35.1-43.9); Red Blood Count 4.52 M/mm3 (4.2-5.4)
--- NOTE | 2022-10-30 08:19 | HP.PCM.OB_ITS ---
History and Physical Date of Admission: 10/30/22 Chief complaint: Induction of labor preeclampsia without severe features History present illness: 26-year-old G3, P0 at 37 weeks and 0 days with VALERIE 11/21/2019 arrives for induction labor for preeclampsia without severe features. Denies headache, vision change, chest pain, shortness of breath, nausea vomit, right upper quadrant pain. Patient states good movement. 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 Past surgical history: Laparotomy for cystectomy, polypectomy Social history: Former smoker, denies alcohol or drug use Family history: Denies history DVT or PE Review of systems: Besides above pertinent positives a full review of systems was performed and found to be negative Physical exam: Vitals: Blood pressure 145/85 pulse 121 General: Normal-appearing no acute distress HEENT: Normocephalic/atraumatic no cervical of adenopathy Cardiac/respiratory: No use of accessory muscles, nonlabored breathing Abdomen: Soft, nontender, gravid Extremities: No peripheral edema normal peripheral pulses Psych: Normal affect, demeanor nonpressured speech Labs: White blood cell count 8.0 hemoglobin 12.9 hematocrit 38.6% platelets 338 Assessment and plan: 26-year-old G3, P0 at 37 weeks and 0 days arrives for induction of labor for preeclampsia without severe features Admit labor and delivery CEFM GBS negative Cytotec induction Preeclampsia without severe features: We will continue to monitor blood pressures along with signs and symptoms of severe preeclampsia Pregestational diabetes: We will continue to monitor blood sugars throughout labor and treat appropriately Anxiety depression: We will continue home medications
[2022-10-30 08:38] LABS: Bedside Glucose 106 mg/dL (74-106)
[2022-10-30 09:17] LABS: Syphilis Antibodies Non-reactive
[2022-10-30 09:42] LABS: ALB/GLOB Ratio 0.6 RATIO (0.9-2.4); AST(SGOT) 13 U/L (15-37); Alanine Aminotransfer ALT/SGPT 17 U/L (13-56); Albumin, Serum 2.5 g/dL (3.2-5.0); Alkaline Phosphatase 115 U/L (45-117); Anion Gap 8 (5-15); BUN 8 mg/dL (7-18); BUN/Creat Ratio 15.6 RATIO (10-20); Calcium,Total 9.6 mg/dL (8.5-10.1); Chloride 110 mmol/L (98-107); Creatinine, Serum 0.51 mg/dL (0.55-1.02); EST Glomerular Filtration Rate 154 mL/min (>60); Est Glom Filt Rate - Afr Amer 186 mL/min (>60); Estimated Creatinine Clearance 145.61 ml/min; Glucose 91 mg/dL (74-106); LDH 88 U/L (84-246); Potassium 4.4 mmol/L (3.5-5.1); Protein, Total 6.5 g/dL (6.4-8.2); Sodium Level 140 mmol/L (136-145)
[2022-10-30] MEDS: miSOPROStol 25 MCG TABLET VAGINAL (10:47)
[2022-10-30 12:57] LABS: Bedside Glucose 87 mg/dL (74-106)
[2022-10-30] MEDS: Oxytocin 15 Units/NS 250ml 15 UNITS/250 ML IV.SOLN 2 UNITS IV (16:32)
[2022-10-30 17:04] LABS: Bedside Glucose 64 mg/dL (74-106)
[2022-10-30 18:09] LABS: Bedside Glucose 86 mg/dL (74-106)
[2022-10-30] MEDS: LACTATED RINGERS 500 ML 999 ML IV (19:17)
[2022-10-30] MEDS: fentaNYL-bupivacaine (epidural) 100 ML BAG EPIDURAL (20:11)
[2022-10-30] MEDS: Lactated Ringers 1,000 ML 200 ML IV (21:26)
[2022-10-30 22:09] LABS: Bedside Glucose 79 mg/dL (74-106)
--- NOTE | 2022-10-30 22:56 | PN.OBGYN_ITS ---
Subjective Subjective Patient now comfortable with epidural. No complaint Objective Data Objective Data Vital Signs: Vital Signs Temp Pulse BP Pulse Ox 97.8 F 118 H 130/86 H 97 10/30/22 21:07 10/30/22 22:37 10/30/22 22:27 10/30/22 22:37 Weight: 231 lb 14.821 oz Body Mass Index (BMI) 39.8 Intake & Output: Intake and Output for Last 24 Hours 10/28/22 10/29/22 10/30/22 23:59 23:59 23:59 Intake Total 1537.81 / 1537.81 Balance 1537.81 / 1537.81 Lab / Micro Data 10/30/22 07:50 10/30/22 08:45 Labs: Laboratory Results - last 24 hr 10/30/22 07:50: WBC 8.0, RBC 4.52, Hgb 12.9, Hct 38.6, MCV 85.4, MCH 28.5, MCHC 33.4, RDW Std Deviation 46.5 H, RDW Coeff of Kayleigh 15.2 H, Plt Count 338, MPV 10.2, Immature Gran % (Auto) 0.600, Neut % (Auto) 66.9, Lymph % (Auto) 26.3, [place] % (Auto) 4.9, Eos % (Auto) 0.9, Baso % (Auto) 0.4, Absolute Neuts (auto) 5.4, Absolute Lymphs (auto) 2.11, Nucleated RBC % 0, Syphilis Total Ab Non- reactive, Blood Type O POSITIVE, Antibody Screen NEGATIVE 10/30/22 08:11: POC Glucose 106 10/30/22 08:45: Sodium 140, Potassium 4.4, Chloride 110 H, Carbon Dioxide 22.0, Anion Gap 8, BUN 8, Creatinine 0.51 L, Estim Creat Clear Calc 145.61, Est GFR (MDRD) Af Amer 186, Est GFR (MDRD) Non-Af 154, BUN/Creatinine Ratio 15.6, Glucose 91, Calcium 9.6, Total Bilirubin 0.20, AST 13 L, ALT 17, Alkaline Phosphatase 115, Lactate Dehydrogenase 88, Total Protein 6.5, Albumin 2.5 L, Globulin 4.0, Albumin/Globulin Ratio 0.6 L 10/30/22 12:18: POC Glucose 87 10/30/22 16:42: POC Glucose 64 L 10/30/22 17:49: POC Glucose 86 10/30/22 21:43: POC Glucose 79 Physical Exam Const alert, oriented x3, no apparent distress, average body habitus, healthy appearing and well nourished HEENT normocephalic and moist oral mucous membranes Eyes PERRL Neck full ROM Resp normal respiratory effort, no retractions and no use of accessory muscles GI GI Narrative: Soft, nontender, gravid Narrative: Cervical exam: /. AROM clear fluid. FSE placed Psych mental status grossly normal, affect normal, speech normal and activity/motor behavior normal Assessment & Plan (1) : PLAN: Called by nursing patient comfortable with epidural and ready for AROM. Patient seen and examined. Educated patient on AROM and FSE placement. Patient and partner state understanding. AROM clear fluid. Educated patient and partner along with nursing on induction management going forward and care plan. Discussed prolonged rupture of membranes and expectations overnight. Patient and partner state understanding all questions answered. We will continue to titrate Pitocin
[2022-10-31] VITALS (30 sets, daily range): BP systolic 126–164; BP diastolic 80–103; PULSE 95–123; TEMP 36.1–37.4; O2SAT 80–100
[2022-10-31] MEDS: fentaNYL-bupivacaine (epidural) 100 ML BAG EPIDURAL ×3 (01:24→13:54)
[2022-10-31 01:57] LABS: Bedside Glucose 79 mg/dL (74-106)
[2022-10-31] MEDS: Lactated Ringers 1,000 ML 200 ML IV ×4 (02:29→17:43)
[2022-10-31] MEDS: Acetaminophen 500 MG Tablet PO (04:17)
[2022-10-31 04:41] LABS: Bedside Glucose 66 mg/dL (74-106)
[2022-10-31 05:40] LABS: Bedside Glucose 106 mg/dL (74-106)
[2022-10-31 06:40] LABS: Bedside Glucose 79 mg/dL (74-106)
[2022-10-31 07:59] LABS: Bedside Glucose 86 mg/dL (74-106)
[2022-10-31 08:44] LABS: Bedside Glucose 77 mg/dL (74-106)
--- NOTE | 2022-10-31 08:55 | PN.OBGYN_ITS ---
Subjective Subjective Patient comfortable with epidural Objective Data Objective Data Vital Signs: Vital Signs Temp Pulse BP Pulse Ox 97.0 F L 106 H 138/90 H 98 10/31/22 06:19 10/31/22 08:22 10/31/22 08:21 10/31/22 08:22 Weight: 231 lb 14.821 oz Body Mass Index (BMI) 39.8 Intake & Output: Intake and Output for Last 24 Hours 10/29/22 10/30/22 10/31/22 23:59 23:59 23:59 Intake Total 1537.81 / 1537.81 2122.26 / 2122.26 Output Total 600 / 600 Balance 1537.81 / 1537.81 1522.26 / 1522.26 Lab / Micro Data 10/30/22 07:50 10/30/22 08:45 Labs: Laboratory Results - last 24 hr 10/30/22 07:50: Syphilis Total Ab Non-reactive, Blood Type O POSITIVE, Antibody Screen NEGATIVE 10/30/22 08:45: Sodium 140, Potassium 4.4, Chloride 110 H, Carbon Dioxide 22.0, Anion Gap 8, BUN 8, Creatinine 0.51 L, Estim Creat Clear Calc 145.61, Est GFR (M DRD) Af Amer 186, Est GFR (MDRD) Non-Af 154, BUN/Creatinine Ratio 15.6, Glucose 91, Calcium 9.6, Total Bilirubin 0.20, AST 13 L, ALT 17, Alkaline Phosphatase 115, Lactate Dehydrogenase 88, Total Protein 6.5, Albumin 2.5 L, Globulin 4.0, Albumin/Globulin Ratio 0.6 L 10/30/22 12:18: POC Glucose 87 10/30/22 16:42: POC Glucose 64 L 10/30/22 17:49: POC Glucose 86 10/30/22 21:43: POC Glucose 79 10/31/22 01:34: POC Glucose 79 10/31/22 04:21: POC Glucose 66 L 10/31/22 05:18: POC Glucose 106 10/31/22 06:21: POC Glucose 79 10/31/22 07:33: POC Glucose 86 10/31/22 08:24: POC Glucose 77 Physical Exam Const alert, oriented x3, no apparent distress, average body habitus, healthy appearing and well nourished HEENT normocephalic and moist oral mucous membranes Eyes PERRL Neck full ROM Resp normal respiratory effort, no retractions and no use of accessory muscles GI GI Narrative: Soft, nontender, gravid Psych mental status grossly normal, affect normal, speech normal and activity/motor behavior normal Assessment & Plan (1) : PLAN: Patient seen and examined. Comfortable with epidural. Cervical dilation advanced overnight. Educated patient and partner on induction plan for today and expectations. Patient and partner state understanding all questions answered. We will continue current management
[2022-10-31 09:48] LABS: Bedside Glucose 84 mg/dL (74-106)
[2022-10-31 10:45] LABS: Bedside Glucose 80 mg/dL (74-106)
[2022-10-31] MEDS: Oxytocin 15 Units/NS 250ml 15 UNITS/250 ML IV.SOLN 20 UNITS IV (11:40)
[2022-10-31] MEDS: Ondansetron 4 MG/2 ML Vial IV (11:49)
[2022-10-31 12:22] LABS: Bedside Glucose 75 mg/dL (74-106)
[2022-10-31] MEDS: 0.9% Saline Lock 10 ML Syringe IV ×2 (12:53→22:43)
[2022-10-31 13:53] LABS: Bedside Glucose 79 mg/dL (74-106)
[2022-10-31 14:55] LABS: Bedside Glucose 74 mg/dL (74-106)
[2022-10-31 17:56] LABS: Bedside Glucose 72 mg/dL (74-106)
[2022-10-31 17:56] LABS: Bedside Glucose 82 mg/dL (74-106)
--- NOTE | 2022-10-31 19:21 | EX.PCM.OBRPT ---
Maternal Data Information Final VALERIE: 11/20/22 Vaginal Delivery Operative Information Date of Procedure: 10/31/22 Pre-Operative Diagnosis: Romano intrauterine , preeclampsia without severe features, pregestational diabetes Post-Operative Diagnosis: Romano intrauterine , preeclampsia without severe features, pregestational diabetes, maternal exhaustion Surgery / Procedure Performed: Vacuum Assisted Vaginal Delivery Type of Anesthesia: Epidural Estimated Blood Loss: 500cc Findings Description of Procedure: 26-year-old G3, P0 at 37/1 weeks admitted for induction of labor for preeclampsia without severe features and pregestational diabetes. Patient progressed throughout labor and pushed for a little over 3 hours. At that time patient had maternal exhaustion. Assess for vacuum assisted vaginal delivery. Patient noted to be occiput anterior position, +2 station. Patient consented for vacuum-assisted vaginal delivery. All risk, benefits, alternatives discussed with patient. Risk include but are not limited to: Risk of shoulder dystocia, risk of severe maternal laceration, risk of scalp laceration, cephalohematoma, subgaleal hemorrhage. Patient aware and consented verbally. Vacuum placed. Anesthesia adequate. No maternal tissue within the vacuum. With maternal effort, vacuum was utilized to assist with delivery. Utilized through 2 contractions. No pop offs. 1 nuchal cord, loose, reduced. Baby to mom. Cord clamped and cut. Baby to awaiting nursery staff. Spontaneous delivery of placenta. Second-degree laceration repaired in the usual fashion. A Gender: Female (1 minute): 7 (5 minute): 9 Complication Complications: None
[2022-10-31] MEDS: Oxytocin 15 Units/NS 250ml 15 UNITS/250 ML IV.SOLN 83 UNITS IV (19:31)
[2022-10-31] MEDS: Acetaminophen 500 MG Tablet 1000 MG PO (21:06)
[2022-10-31] MEDS: metFORMIN (XR) 500 MG Tablet 1000 MG PO (21:07)
[2022-10-31] MEDS: Insulin Glargine-YFGN 100 UNIT/ML Pen SC (21:08)
[2022-10-31 21:23] LABS: Bedside Glucose 99 mg/dL (74-106)
[2022-10-31] MEDS: Labetalol 200 MG Tablet PO (21:57)
--- NOTE | 2022-10-31 22:35 | NURSING ---
report given to Shelli Lawson RN who is assuming care of pt at this time
[2022-10-31] MEDS: Ibuprofen 600 MG Tablet PO (23:44)
[2022-11-01] VITALS (12 sets, daily range): BP systolic 107–133; BP diastolic 64–89; PULSE 84–121; RESP 16–18; TEMP 36.4–36.7; O2SAT 97
[2022-11-01 04:38] LABS: Hematocrit 35.1 % (37-47); Hemoglobin 11.7 g/dL (12.0-15.0); Mean Corp Hgb Conc 33.3 g/dL (32-36); Mean Corpuscular Hgb 28.5 pg (27.0-32.0); Mean Corpuscular Volume 85.4 fL (81-99); Mean Platelet Vol. 10.3 fl (6.2-12.0); Platelet Count 328 K/mm3 (150-450); RBC Distribution Width CV 15.1 % (11.6-14.6); RBC Distribution Width SD 46.3 fl (35.1-43.9); Red Blood Count 4.11 M/mm3 (4.2-5.4); White Blood Count 13.8 K/mm3 (4.4-11.0)
[2022-11-01 04:59] LABS: ALB/GLOB Ratio 0.6 RATIO (0.9-2.4); AST(SGOT) 20 U/L (15-37); Alanine Aminotransfer ALT/SGPT 18 U/L (13-56); Albumin, Serum 2.3 g/dL (3.2-5.0); Alkaline Phosphatase 109 U/L (45-117); Anion Gap 11 (5-15); BUN 7 mg/dL (7-18); BUN/Creat Ratio 9.6 RATIO (10-20); Calcium,Total 9.1 mg/dL (8.5-10.1); Chloride 109 mmol/L (98-107); Creatinine, Serum 0.73 mg/dL (0.55-1.02); EST Glomerular Filtration Rate 103 mL/min (>60); Est Glom Filt Rate - Afr Amer 124 mL/min (>60); Estimated Creatinine Clearance 101.73 ml/min; Globulin 3.6 g/dL (2.2-4.2); Glucose 107 mg/dL (74-106); Potassium 4.1 mmol/L (3.5-5.1); Protein, Total 5.9 g/dL (6.4-8.2); Sodium Level 141 mmol/L (136-145)
[2022-11-01 07:13] LABS: Bedside Glucose 83 mg/dL (74-106)
--- NOTE | 2022-11-01 07:21 | PCM.PN.OB ---
Subjective Subjective Feeling well. Lochia minimal. No headache or vision changes, chest pain or shortness of breath, nausea or vomiting. Working on breast-feeding. Objective Data Objective Data Vital Signs: Vital Signs Temp Pulse Resp BP Pulse Ox O2 Del Method 98.0 F 121 H 16 125/75 H 97 Room Air 11/01/22 04:23 11/01/22 04:24 11/01/22 04:23 11/01/22 04:24 10/31/22 21:10 11/01/22 00:19 Oxygen Delivery Method Room Air Weight: 105.2 kg Body Mass Index (BMI) 39.8 Intake & Output: Intake and Output for Last 24 Hours 10/30/22 10/31/22 11/01/22 23:59 23:59 23:59 Intake Total 1537.81 / 1537.81 4795.52 / 4795.52 Output Total 3600 / 3600 800 / 800 Balance 1537.81 / 1537.81 1195.52 / 1195.52 -800 / -800 Lab / Micro Data Attestation: I reviewed the patient's lab results. 11/01/22 04:20 11/01/22 04:20 Labs: Laboratory Results - last 24 hr 10/31/22 07:33: POC Glucose 86 10/31/22 08:24: POC Glucose 77 10/31/22 09:25: POC Glucose 84 10/31/22 10:26: POC Glucose 80 10/31/22 12:03: POC Glucose 75 10/31/22 13:30: POC Glucose 79 10/31/22 14:33: POC Glucose 74 10/31/22 15:54: POC Glucose 82 10/31/22 16:57: POC Glucose 72 L 10/31/22 21:01: POC Glucose 99 11/01/22 04:20: WBC 13.8 H, RBC 4.11 L, Hgb 11.7 L, Hct 35.1 L, MCV 85.4, MCH 28.5, MCHC 33.3, RDW Std Deviation 46.3 H, RDW Coeff of Kayleigh 15.1 H, Plt Count 328, MPV 10.3, Sodium 141, Potassium 4.1, Chloride 109 H, Carbon Dioxide 21.0, Anion Gap 11, BUN 7, Creatinine 0.73, Estim Creat Clear Calc 101.73, Est GFR (MDRD) Af Amer 124, Est GFR (MDRD) Non-Af 103, BUN/Creatinine Ratio 9.6 L, Glucose 107 H, Calcium 9.1, Total Bilirubin 0.20, AST 20, ALT 18, Alkaline Phosphatase 109, Total Protein 5.9 L, Albumin 2.3 L, Globulin 3.6, Albumin/Globulin Ratio 0.6 L 11/01/22 06:33: POC Glucose 83 Assessment & Plan (1) Vacuum extractor delivery, delivered: PLAN: Here forPostpartum day 1 status post vacuum-assisted vaginal delivery. Complicated by pregestational diabetes. We will continue blood glucoses ACHS, continue metformin units nightly. Anticipate discontinuing Levemir either during hospital stay or shortly thereafter. Preeclampsia without severe features: Labs stable today, blood pressure stable. Started on labetalol 200 mg every 12 hours on day 0. Discharge home tomorrow at the earliest
[2022-11-01] MEDS: Ibuprofen 600 MG Tablet PO ×3 (08:12→21:51)
[2022-11-01 09:21] LABS: Bedside Glucose 81 mg/dL (74-106)
[2022-11-01] MEDS: Sertraline 100 MG Tablet 50 MG PO (09:27)
[2022-11-01] MEDS: Labetalol 200 MG Tablet PO ×2 (09:27→21:51)
[2022-11-01] MEDS: Enoxaparin 40 MG/0.4 ML Syringe SC (09:28)
[2022-11-01] MEDS: metFORMIN (XR) 500 MG Tablet 1000 MG PO ×2 (10:29→20:41)
[2022-11-01] MEDS: Acetaminophen 500 MG Tablet 1000 MG PO ×2 (12:26→18:57)
[2022-11-01 12:40] LABS: Bedside Glucose 90 mg/dL (74-106)
[2022-11-01 16:30] LABS: Bedside Glucose 69 mg/dL (74-106)
[2022-11-01 20:05] LABS: Bedside Glucose 88 mg/dL (74-106)
[2022-11-01 22:48] LABS: Bedside Glucose 61 mg/dL (74-106)
[2022-11-02] MEDS: Acetaminophen 500 MG Tablet 1000 MG PO ×2 (01:28→09:34)
[2022-11-02 01:39] VITALS: BP 104/63; PULSE 91; RESP 14; TEMP 36.1
[2022-11-02] MEDS: Enoxaparin 40 MG/0.4 ML Syringe SC (05:32)
[2022-11-02] MEDS: Ibuprofen 600 MG Tablet PO (06:57)
--- NOTE | 2022-11-02 08:37 | PCM.PN.OB ---
Subjective Subjective Patient feeling well. Lochia minimal. Having some soreness at laceration repair, controlled with Motrin. Working on breast-feeding, improving. Objective Data Objective Data Vital Signs: Vital Signs Temp Pulse Resp BP Pulse Ox O2 Del Method 97 F L 91 14 104/63 97 Room Air 11/02/22 01:39 11/02/22 01:39 11/02/22 01:39 11/02/22 01:39 11/01/22 15:30 11/02/22 01:39 Oxygen Delivery Method Room Air Weight: 105.2 kg Body Mass Index (BMI) 39.8 Intake & Output: Intake and Output for Last 24 Hours 10/31/22 11/01/22 11/02/22 23:59 23:59 23:59 Intake Total 4795.52 / 4795.52 Output Total 3600 / 3600 800 / 800 Balance 1195.52 / 1195.52 -800 / -800 Lab / Micro Data Attestation: I reviewed the patient's lab results. 11/01/22 04:20 11/01/22 04:20 Labs: Laboratory Results - last 24 hr 11/01/22 08:56: POC Glucose 81 11/01/22 12:22: POC Glucose 90 11/01/22 16:11: POC Glucose 69 L 11/01/22 18:58: POC Glucose 88 11/01/22 22:14: POC Glucose 61 L Physical Exam Const alert, oriented x3 and no apparent distress HEENT normocephalic Head and Scalp: atraumatic Neck full ROM Resp normal respiratory effort Cardio regular rate GI normal to inspection, nondistended, normoactive bowel sounds GI Narrative: Uterus 2 cm below umbilicus Back/Spine normal ROM Extremity normal to inspection Extremity Narrative: Minimal pedal edema Neuro no focal motor deficits and no sensory deficits noted Psych mental status grossly normal and affect normal Assessment & Plan (1) Pre-eclampsia: PLAN: day 1 status post vacuum-assisted vaginal delivery. Complicated by pregestational diabetes: Blood glucose controlled on metformin. Preeclampsia without severe features: Blood pressures well controlled. Now on labetalol 200 mg every 12 hours, will continue on home-going. Discharge home today with 1 week blood pressure check in office. Reviewed signs and symptoms of severe preeclampsia. (2) Vacuum extractor delivery, delivered:
--- NOTE | 2022-11-02 08:39 | DCINST_ITS ---
Discharge Instructions Diet Discharge Diet: No restrictions Activity Discharge Activity: Return to Normal Activity and May Shower May resume sexual activity in: 4-6 weeks Weight Bearing Status: Weight bearing as tolerated Lifting Restrictions: No greater than 25 pounds Dressing / Incision Call your doctor if you observe: Fever of 101 or Higher, Change in Color, Inability to urinate, Using more than 1 pad per hour, Shortness of breath, Dizziness, Swelling in the ankles, Chest pain and Calf discomfort Follow Up Care Please Follow Up With: Abdi Vee MD When: 1 week blood pressure check, 6-week visit Test Results: Test results from this visit will be discussed in further detail at your follow- up appointment, if applicable. Discharge Plan Admission Admit Date/Time: 10/30/22 06:56 Primary Reason for Your Visit: Vaginal delivery Attending Provider: Heaven Vee Primary Care Provider: Kevin Novoa Instructions Additional Instructions / Restrictions: Call for blood pressure greater than 160/110, persistent headache unresolved with Tylenol and ibuprofen. Discharge Orders/Prescriptions Prescriptions: New labetalol 200 mg Tablet 200 mg PO Q12H 30 Days Qty: 60 0RF Continued metformin 500 mg tablet extended release 24 hr 1,000 mg PO BID sertraline [Zoloft] 100 mg tablet 50 mg PO DAILY PNV cmb#95-ferrous fumarate-FA [] 28 mg iron- 800 mcg tablet 1 tab PO DAILY Discontinued ondansetron HCl 4 mg tablet 4 mg PO DAILY Hold Instructions: no longer sick Patient Comments: TAKE 1 TABLET BY MOUTH EVERY 4-6 HOURS NEEDED FOR NAUSEA folic acid 800 mcg Tablet 0.8 mg PO DAILY Levemir U-100 Insulin 100 unit/mL solution 8 unit SUBCUT QHS aspirin 81 mg Capsule 81 mg PO DAILY promethazine 25 mg tablet 25 mg PO TID PRN (Reason: nausea and vomiting) Qty: 20 0RF Hold Instructions: Order Changed Referrals / Follow Up: Kevin Novoa DO [Primary Care Provider] - Disposition Disposition (needs filled in before D/C Order can be placed): Home, Self Care
--- NOTE | 2022-11-02 08:42 | PCM.DC.SUM ---
Providers Date of Admission: 10/30/22 Primary Care Physician: Dr. Kevin Novoa DO Reason For Visit: VAG Diagnosis Discharge Diagnosis (1) Pre-eclampsia: Status: Acute Code(s): O14.90 - Unspecified pre-eclampsia, unspecified trimester Plan: day 1 status post vacuum-assisted vaginal delivery. Complicated by pregestational diabetes: Blood glucose controlled on metformin. Preeclampsia without severe features: Blood pressures well controlled. Now on labetalol 200 mg every 12 hours, will continue on home-going. Discharge home today with 1 week blood pressure check in office. Reviewed signs and symptoms of severe preeclampsia. (2) Vacuum extractor delivery, delivered: Status: Acute Code(s): O75.9 - Complication of labor and delivery, unspecified Medications at Discharge Home Medications metformin 500 mg tablet,extended release 24 hr 1,000 mg PO BID diabetes 08/03/21 sertraline 100 mg tablet (Zoloft) 50 mg PO DAILY anxiety 06/29/22 vit no.95-ferrous fumarate 28 mg-folic acid 800 mcg tablet () 1 tab PO DAILY 10/23/22 labetalol 200 mg tablet 200 mg PO Q12H 30 days #60 tabs 11/02/22 Hospital Course Summary of Care Provided Hospital Course: Admitted for induction of labor for preeclampsia without severe features of pregestational diabetes. Patient had vacuum-assisted vaginal delivery. Stable for discharge home day 2. Physical Exam Const alert, oriented x3 and no apparent distress HEENT normocephalic Head and Scalp: atraumatic Neck full ROM Resp normal respiratory effort Cardio regular rate GI normal to inspection, nondistended, normoactive bowel sounds GI Narrative: Uterus 2 cm below umbilicus Back/Spine normal ROM Extremity normal to inspection Extremity Narrative: Minimal pedal edema Neuro no focal motor deficits and no sensory deficits noted Psych mental status grossly normal and affect normal Weight / BMI Weight Weight: 105.2 kg Body Mass Index (BMI) 39.8 ABG / Lab / Microbiology Data 11/01/22 04:20 11/01/22 04:20 Laboratory: Laboratory Results - last 24 hr 11/01/22 08:56: POC Glucose 81 11/01/22 12:22: POC Glucose 90 11/01/22 16:11: POC Glucose 69 L 11/01/22 18:58: POC Glucose 88 11/01/22 22:14: POC Glucose 61 L D/C Instructions Discharge Diet: No restrictions May resume sexual activity in: 4-6 weeks Weight Bearing Status: Weight bearing as tolerated Call your doctor if you observe: Fever of 101 or Higher, Change in Color, Inability to urinate, Using more than 1 pad per hour, Shortness of breath, Dizziness, Swelling in the ankles, Chest pain and Calf discomfort Please Follow Up With: Abdi Vee MD When: 1 week blood pressure check, 6-week visit Meaningful Use Info Meaningful Use Diagnoses (Choose all that apply): None applicable Discharge Plan Admission Admit Date/Time: 10/30/22 06:56 Primary Reason for Your Visit: Vaginal delivery Attending Provider: Heaven Vee Primary Care Provider: Kevin Novoa Instructions Additional Instructions / Restrictions: Call for blood pressure greater than 160/110, persistent headache unresolved with Tylenol and ibuprofen. Discharge Orders/Prescriptions Prescriptions: New labetalol 200 mg Tablet 200 mg PO Q12H 30 Days Qty: 60 0RF Continued metformin 500 mg tablet extended release 24 hr 1,000 mg PO BID sertraline [Zoloft] 100 mg tablet 50 mg PO DAILY PNV cmb#95-ferrous fumarate-FA [] 28 mg iron- 800 mcg tablet 1 tab PO DAILY Discontinued ondansetron HCl 4 mg tablet 4 mg PO DAILY Hold Instructions: no longer sick Patient Comments: TAKE 1 TABLET BY MOUTH EVERY 4-6 HOURS NEEDED FOR NAUSEA folic acid 800 mcg Tablet 0.8 mg PO DAILY Levemir U-100 Insulin 100 unit/mL solution 8 unit SUBCUT QHS aspirin 81 mg Capsule 81 mg PO DAILY promethazine 25 mg tablet 25 mg PO TID PRN (Reason: nausea and vomiting) Qty: 20 0RF Hold Instructions: Order Changed Referrals / Follow Up: Kevin Novoa DO [Primary Care Provider] - Disposition Disposition (needs filled in before D/C Order can be placed): Home, Self Care
[2022-11-02 09:10] VITALS: BP 141/99; PULSE 96; RESP 18; TEMP 36.6
[2022-11-02] MEDS: metFORMIN (XR) 500 MG Tablet 1000 MG PO (09:20)
[2022-11-02] MEDS: Sertraline 100 MG Tablet 50 MG PO (09:21)
[2022-11-02] MEDS: Labetalol 200 MG Tablet PO (09:21)
[2022-11-02 10:01] LABS: Bedside Glucose 71 mg/dL (74-106)
[2022-11-02 13:25] LABS: Bedside Glucose 75 mg/dL (74-106)
--- NOTE | 2022-11-02 13:53 | CASEMGMT ---
Social Work Assessment Labor and Delivery Unit Patient Address:[address] [place] [id number] Phone number:[phone] Date of Referral: 10/31/22 Time of Referral:?1939 Referred By: Dr. Heaven Vee Date of Intervention: 11/02/22?? Time of Intervention:? 944 Reason for Referral:? History obtained from: medical records and mother of baby (MOB)??? Household composition: Patient's parent/guardian status:? ?(are they , together, is dad involved; who are all of the kids, do they have custody;? will put the DV concerns here or in the section) Medical History: ?(mom?s history ? how many pregnancies, deliveries, care, any pertinent medical issues)??? (baby?s history birthweight, apgars, and any pertinent medical issues which is usually nothing) Educational Status:? any concerns with reading/writing/learning Financial Status: Infant Supplies:?? make sure they have a car seat/pack-n-play Childcare/Caregiver(s):? Transportation:?? Programs/Agencies Involved: ??? Children Services/Legal Issues:??? Behavioral Health Issues: ??Mental Health History:??? Substance Use History:?? Family History:? Drug Screens: ??if I do an [place] depression scale I will put this info in the section, or if there is a PHQ9 that was addressed Family/Social Stressors:? Support Systems: Depression/Shaken Baby/Safe Sleeping:? important topics so have this so we can indicate education? provided, responses as indicated, etc.?? ASSESSMENT:? Safe Plan of Care for related to substance use:? only need this if there is a concern about substance use and/or in utero exposure to substances.? PLAN:? ?No other services requested or indicated.
[2022-11-02 14:00] VITALS: BP 125/75; PULSE 90; RESP 19; TEMP 37.1
--- NOTE | 2022-11-02 16:32 | CASEMGMT ---
Social Work Labor and Delivery Unit Sw made aware of social work consult entered due to maternal mental health history. - Sw completed chart review and presented to bedside. Sw introduced self to parents and explained reason for sw involvement at this time. - Sw completed psychosocial assessment, assessed for signs or symptoms of depression (using [place] Depression Screen) and provided support and resources. - Mother and baby medically ready for discharge on this date. - Sw to enter compelte psychosocial assessment at later date. No futher issues or concerns at this time, ok for MOB and baby to be discharged from sw perspective. Javi Montoya, DECAY CONTROL OPERATOR, AMMONIUM SULFATE OPERATOR
--- NOTE | 2022-11-06 14:00 | CASEMGMT ---
Social Work Assessment Labor and Delivery Unit Patient Address:[address] [place] [address] Phone number: [phone] Date of Referral: 10/31/22 Time of Referral:? 1938 Referred By: Dr. Heaven Vee Date of Intervention: 11/02/22 Time of Intervention:? 944 Reason for Referral:?mental health Sw completed chart review and acknowledges social work consult due to maternal mental health history. Sw presented to bedside and introduced self to mother of baby (MOB- Malinda) and father of baby (FOB- Will). Sw explained reason for social work involvement and completed psychosocial assessment. Both parents present and engaged in conversation with sw during assessment. When asked FOB respectfully left room while sw discussed mental health history and assessed for safetly with MOB. History obtained from: medical records, MOB and FOB. Household composition: Currently residing in the family home is JERARDO, DINO and now baby. Patient's parent/guardian status:?Parents report they are , they have been together for 9 years. FOB was at and has been a good support to MOB and baby since delivery. While meeting with MOB privately she denied concerns of domestic violence or intimate partner violence. Medical History: JERARDO is 4, para 0, now 1. MOB states that she had two miscarriages. MOB reports that after the first miscarriage she fell into a pretty bad depression. MOB states that she was extremely sad and did not have motivation to do anything. MOB states that when they got again and she lost it, the second time was not as hard as the first. JERARDO states that she is so thankful that she now has baby girl, Oscar Chambers. JERARDO delivered baby at 37 weeks gestation via vaginal delivery following induction for pre-eclampsia. MOB states that she was on light bedrest for a long portion of her , but reflects that it was all worth it because now she has Oscar. Baby Oscar weighed 3135 grams at and her apgars were 7 and 9 at one and five minutes of life respectfully. Educational Status: Both parents graduated from high school, no college education for either parent.. Parents deny difficulties learning, did not require IEP. Financial Status: DINO is gainfully employed outside of the home as a linda. 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 Infant Supplies:?Parents report they have obtained all necessary baby items, including: safe sleep space, car seat, clothes, diapers and wipes. JERARDO is also providing breastmilk for baby and states that she has a pump. Childcare/Caregiver(s):? JERARDO will be the primary caregiver to Oscar, along with FOB when not at work. JERARDO states that if they need assistance with childcare maternal grandparents and brother and sister in law will be able to help out. Transportation:?? No transportation barriers at this time, both parents have reliable transportation. Programs/Agencies Involved: ???Parents are not connected to any community resources as at this time as they are over income. Children Services/Legal Issues:??? No history with children services, no issues or concerns that warrant a referral at this time. Behavioral Health Issues: ??Mental Health History: FOChelle denies mental health history. JERARDO states that she has been diagnosed with anxiety and depression. JERARDO struggled significantly with her mental health following the loss of her first . MOB compelted [place] Depression screen, her score was a 7. Janet educated JERARDO on what her score says about her current mental health status and encouraged MOB to get connected with community mental health supports to help her during this period. JERARDO was receptive to this. Janet provided JERARDO with list of counseling agencies local to [place].??? Substance Use History:?JERARDO denies substance use prior to or during . ? Family History:??No family history of mental health or substance use reported. ??? Drug Screens: ?No drug screens observed in chart review. ? Family/Social Stressors:? JERARDO states that the only stressor she has at this time is managing her mental health now that baby has been born. JERARDO states that she is nervous that she will experience depression or anxiety and it will affect her ability to care for baby. Education and literature provided. Much support and encouragement given. MOB encouraged to get connected with a counselor/ therapist. Support Systems: JERARDO reports that maternal grandparents, paternal father in law and her brother and sister in law are really big supports for her and FOB. JERARDO states that she has also grown in her daniel following the two miscarriages that she experienced. JERARDO states that her worship is a big reason why she is who she is today, and she says DINO is who introduced her to her daniel. Depression/Shaken Baby/Safe Sleeping:?Sw provided education and literature to both parents regarding signs and symptoms of baby blues, depression and anxiety. MOB and FOB talked about ways that FOB can continue to be a good support for MOB during her period following of baby Moore. Sw educated parents on shaken baby prevention and ABCs of safe sleep. Parents expressed understanding. ASSESSMENT:? Parents were engaging during assessment, answered questions and were good supports to one another. Parents were receptive to sw involvement and support. Parents appreciative of information and education provided. MOB would benefit from ongoing support and linkage to community mental health resources. PLAN:? MOB and baby to be discharged when medically ready. ?No other services requested or indicated. Javi Montoya, [employer], [employer]
== END 2022-11-02 14:15 | disposition home or self-care (01) | DRG 807 ==
PROVIDERS: Obstetrics & Gynecology; Admitting Provider Student in an Organized Health Care Education/Training Program; PCP Family Medicine; Visit Provider Student in an Organized Health Care Education/Training Program
DX: O14.14 Severe pre-eclampsia complicating childbirth (principal); Z37.0 Single live birth; O24.32 Unspecified pre-existing diabetes mellitus in childbirth; O26.23 Pregnancy care for patient with recurrent pregnancy loss, third trimester; O99.344 Other mental disorders complicating childbirth; E66.01 Morbid (severe) obesity due to excess calories; F32.A Depression, unspecified; F41.9 Anxiety disorder, unspecified; O99.214 Obesity complicating childbirth; O69.81X0 Labor and delivery complicated by cord around neck, without compression, not applicable or unspecified; O70.1 Second degree perineal laceration during delivery; O75.81 Maternal exhaustion complicating labor and delivery; O99.893 Other specified diseases and conditions complicating puerperium; R00.0 Tachycardia, unspecified; Z3A.37 37 weeks gestation of pregnancy; Z79.84 Long term (current) use of oral hypoglycemic drugs; Z79.899 Other long term (current) drug therapy; Z87.891 Personal history of nicotine dependence
CPT/HCPCS: 59050; 80053; 82962; 83615; 85025; 85027; 86780; 86850; 86900; 86901; 99221; J7120; A4216; G0378; J2405

== ENCOUNTER → 2022-11-09 | Outpatient (CLI) | payer BC, SELFPAY ==
[2022-11-09 11:45] LABS: Hematocrit 37.8 % (37-47); Hemoglobin 12.4 g/dL (12.0-15.0); Mean Corp Hgb Conc 32.8 g/dL (32-36); Mean Corpuscular Hgb 28.6 pg (27.0-32.0); Mean Corpuscular Volume 87.3 fL (81-99); Mean Platelet Vol. 9.6 fl (6.2-12.0); Platelet Count 459 K/mm3 (150-450); RBC Distribution Width CV 14.6 % (11.6-14.6); RBC Distribution Width SD 46.6 fl (35.1-43.9); Red Blood Count 4.33 M/mm3 (4.2-5.4); White Blood Count 6.8 K/mm3 (4.4-11.0)
[2022-11-09 12:09] LABS: ALB/GLOB Ratio 0.8 RATIO (0.9-2.4); AST(SGOT) 16 U/L (15-37); Alanine Aminotransfer ALT/SGPT 25 U/L (13-56); Alkaline Phosphatase 93 U/L (45-117); Anion Gap 7 (5-15); BUN 7 mg/dL (7-18); BUN/Creat Ratio 10.6 RATIO (10-20); Calcium,Total 8.8 mg/dL (8.5-10.1); Chloride 108 mmol/L (98-107); Creatinine, Serum 0.66 mg/dL (0.55-1.02); EST Glomerular Filtration Rate 115 mL/min (>60); Est Glom Filt Rate - Afr Amer 139 mL/min (>60); Globulin 3.7 g/dL (2.2-4.2); Glucose 90 mg/dL (74-106); Potassium 3.8 mmol/L (3.5-5.1); Protein, Total 6.7 g/dL (6.4-8.2); Sodium Level 141 mmol/L (136-145); T4 Free Direct 0.97 ng/dL (0.76-1.46); Thyroid Stim Hormone (TSH) 0.58 uIU/mL (0.358-3.74)
== END | disposition home or self-care (01) ==
LOC: WOBLAB 11:00
PROVIDERS: PCP Family Medicine; Visit Provider Obstetrics & Gynecology
DX: R42 Dizziness and giddiness (principal)
CPT/HCPCS: 36415; 80053; 84439; 84443; 85027